=== PATIENT | male | born 1960 | race African-American/Black ===

== ENCOUNTER 2018-09-25 23:34 | Emergency (ER) | payer MEDICAID ==
[~2018-09-25] VITALS: Ht 175.3 cm; Wt 82.0 kg
[2018-09-25 23:37] VITALS: BP 124/75
== END 2018-09-26 00:35 | disposition left against medical advice (07) ==
LOC: ER 23:34
DX: R10.9 Unspecified abdominal pain (principal); R11.2 Nausea with vomiting, unspecified; Z53.21 Procedure and treatment not carried out due to patient leaving prior to being seen by health care provider